=== PATIENT | female | born 1990 | race Caucasian/White ===

== ENCOUNTER 2020-02-27 09:32 | Emergency (ER) | payer BC ==
[~2020-02-27] VITALS: Ht 172.7 cm; Wt 109.2 kg
[2020-02-27 09:40] VITALS: BP 146/95
== END 2020-02-27 11:33 | disposition home or self-care (01) ==
LOC: ED 10:51
DX: J06.9 Acute upper respiratory infection, unspecified (principal); Z20.828 Contact with and (suspected) exposure to other viral communicable diseases
CPT/HCPCS: 36415; 71045; 87635; 99284